=== PATIENT | female | born 1995 | race Caucasian/White ===

== ENCOUNTER 2017-10-13 15:49 | Emergency (ER) | payer MEDICAID, OTHER ==
[~2017-10-13] VITALS: Ht 165.1 cm; Wt 84.8 kg
--- OUTSIDE RECORDS SUMMARY | 2017-10-13 15:56 | XMS REPORT | Clinical Summary ---
Author Author DVINYARD Organization Unknown Address Unknown Phone Unavailable Drug Allergies and Adverse Reactions SNOMED Allergy Type Code Substance Substance RxNorm code Reaction Severity Date Identified Date Resolved Status Problems SNOMED CT Problem Onset Date Ended Date Status Medications RxNorm Code Medication Began Ended Dosage Frequency Route Units Status hydrocodone 10 mg prn as needed for pain 10/25/2009 09/06/2011 Completed Gianvi 06/18/2010 09/06/2011 Completed rocephin 125 mg Im in clinic 07/19/20102009 Completed Z-Pack for throat irritation 09/05/2011 Active Lo Ovral PO 09/06/2011 Active azithromycin 1 gm 11/06/2011 11/06/2011 Completed PNV 11/01/2015 Active Diagnostic Results Lab Results LOINC Code Lab Test Result Abnormal Completed Date HIV RAPID NEG[0] N 09/06/2011 RPR NONREACTIVE[0] N 09/06/2011 URINE HCG NEG[0] N 09/06/2011 CHLAMYDIA POSITIVE[0] Y 09/12/2011 GONORRHEA NEGATIVE[0] N 09/12/2011 URINE HCG NEGATIVE[0] N 01/17/2015 URINE HCG POSITIVE[0] Y 11/01/2015 BB ANTIBODY SCREEN NEGATIVE[0] N BB TYPE B positive[0] N 03/16/2016 GLUCOSE RANDOM 84[0] N 03/16/2016 HEMATOCRIT 36 Y 03/16/2016 HEMOGLOBIN 12.0[12] N 03/16/2016 Hgb A1c 5.4 N 03/16/2016 PNUA01 GLUCOSE NEGATIVE[0] N 2015 PNUA02 KETONES NEGATIVE[0] N 2015 PNUA03 - SP. GRAVITY 1.020[0] N 03/16 PNUA04 - PROTEIN NEGATIVE[0] N 2015 URINE CULTURE KU SEE COMMENTS[0] Y CHLAMYDIA NEGATIVE[0] N 03/19/2016 GONORRHEA NEGATIVE[0] N 03/19/2016 HIV-KDHE4 4th GENERATION NON-REACTIVE[0] N 03/19/2016 RPR NON-REACTIVE[0] N 03/20/2016 PAP NEGATIVE[0] N 03/20/2016 HEPATITIS B (HBs Ag SCREEN) NON-REACTIVE[0] N 03/21/2016 HEMATOCRIT 33 Y 04/05/2016 HEMOGLOBIN 11.0[11] Y 04/05/2016 [id number] FASTING 107 Y 04/05/2016 [id number] 1 HOUR GLUCOSE 223 Y 2015 [id number] 2 HOUR GLUCOSE 147 N 2015 PNUA01 GLUCOSE NEGATIVE[0] N 2015 PNUA02 KETONES NEGATIVE[0] N 2015 PNUA03 - SP. GRAVITY 1.020[0] N 04/05 PNUA04 - PROTEIN TRACE[0] Y 2015 RUBELLA NEGATIVE[0] Y 04/06/2016 GLUCOSE RANDOM 153[0] Y 04/12/2016 PNUA01 GLUCOSE NEGATIVE[0] N 2015 PNUA02 KETONES NEGATIVE[0] N 2015 PNUA03 - SP. GRAVITY 1.020[0] N 04/12 PNUA04 - PROTEIN NEGATIVE[0] N 2015 Encounters Date Location Type 07/19/2010 [facility][STD] CLINIC 09/06/2011 [facility][IMMUNIZATION] CLINIC 11/06/2011 [facility][STD - MS] CLINIC 01/17/2015 [facility][FP DROP INS] CLINIC 11/01/2015 [facility][FP DROP INS] CLINIC 03/02/2016 [facility][PN REGISTRATION] CLINIC 03/16/2016 [facility][NPIS OLATHE] CLINIC 04/05/2016 [facility][PN COUNCILOR] CLINIC 04/06/2016 [facility][PN DIABETIC EDUC] CLINIC 04/12/2016 [facility][PN GDM] CLINIC Vital Signs Date Height(cm) Weight(kg) Head Circ(cm) BP-Systolic BP-Diastolic Temperature(C) Respiration Heart Beat Oxygen(%) 09/06/2011 165.1 68.04 108 66 01/17/2015 80.29 11/01/2015 165.1 84.37 03/16/2016 161.29 86.6 100 60 04/05/2016 161.29 [id number] 82 48 04/12/2016 161.29 90.5 104 58
--- OUTSIDE RECORDS SUMMARY | 2017-10-13 15:56 | XMS REPORT | Clinical Summary ---
Author Author JOB Organization Unknown Address Unknown Phone Unavailable Drug [...] Code Lab Test Result Abnormal Completed Date RUBELLA [0] N HIV RAPID NEG[0] N 09/06/2011 RPR NONREACTIVE[0] [...] 33 Y 04/05/2016 HEMOGLOBIN 11.0[11] Y 04/05/2016 [id number] FASTING 107 Y 04/05/2016 [id number] 1 HOUR GLUCOSE 223 Y 2015 [id number] 2 HOUR GLUCOSE 147 N 2015 PNUA01 GLUCOSE NEGATIVE[0] N 2015 PNUA02 KETONES NEGATIVE[0] N 2015 PNUA03 - SP. GRAVITY 1.020[0] N 04/05 PNUA04 - PROTEIN TRACE[0] Y 2015 Encounters Date Location Type 07/19/2010 [facility] 09/[facility]/2011 [facility][IMMUNIZATION] CLINIC 11/06/2011 [facility][STD - MS] CLINIC 01/17/[facility] 11/01/[facility] 03/02/[facility] 03/16/[facility] 04/05/[facility] 04/06/[facility] Vital Signs Date Height(cm) Weight(kg) Head Circ(cm) BP-Systolic BP-Diastolic Temperature(C) Respiration Heart Beat Oxygen(%) 09/06/2011 165.1 68.04 108 66 01/17/2015 80.29 11/01/2015 165.1 84.37 03/16/2016 161.29 86.6 100 60 04/05/2016 161.29 [id number] 82 48
--- OUTSIDE RECORDS SUMMARY | 2017-10-13 15:57 | XMS REPORT | Clinical Summary ---
[...] 33 Y 04/05/2016 HEMOGLOBIN 11.0[11] Y 04/05/2016 [id number] FASTING 107 Y 04/05/2016 [id number] 1 HOUR GLUCOSE 223 Y 2015 [id number] 2 HOUR GLUCOSE 147 N 2015 PNUA01 GLUCOSE NEGATIVE[0] N 2015 PNUA02 KETONES NEGATIVE[0] N 2015 PNUA03 - SP. GRAVITY 1.020[0] N 04/05 PNUA04 - PROTEIN TRACE[0] Y 2015 RUBELLA NEGATIVE[0] Y 04/06/2016 GLUCOSE RANDOM 153[0] Y 04/12/2016 PNUA01 GLUCOSE NEGATIVE[0] N 2015 PNUA02 KETONES NEGATIVE[0] N 2015 PNUA03 - SP. GRAVITY 1.020[0] N 04/12 PNUA04 - PROTEIN NEGATIVE[0] N 2015 PNUA01 GLUCOSE NEGATIVE[0] N 2015 PNUA02 KETONES NEGATIVE[0] N 2015 PNUA03 - SP. GRAVITY 1.020[0] N 04/26 PNUA04 - PROTEIN NEGATIVE[0] N 2015 Encounters Date Location Type 07/19/2010 [facility][STD] CLINIC 09/06/2011 [facility][IMMUNIZATION] CLINIC 11/06/2011 [facility][STD - MS] CLINIC 01/17/2015 [facility][FP DROP INS] CLINIC 11/01/2015 [facility][FP DROP INS] CLINIC 03/02/2016 [facility][PN REGISTRATION] CLINIC 03/16/2016 [facility][NPIS [place]] CLINIC 04/05/2016 [facility][PN FUR SCRAPER] CLINIC 04/06/2016 [facility][PN DIABETIC EDUC] CLINIC 04/12/2016 [facility][PN GDM] CLINIC 04/19/2016 [facility][PN GDM] CLINIC 04/26/2016 [facility][PN GDM] CLINIC Vital Signs Date Height(cm) Weight(kg) Head Circ(cm) BP-Systolic BP-Diastolic Temperature(C) Respiration Heart Beat Oxygen(%) 09/06/2011 165.1 68.04 108 66 01/17/2015 80.29 11/01/2015 165.1 84.37 03/16/2016 161.29 86.6 100 60 04/05/2016 161.29 [id number] 82 48 04/12/2016 161.29 90.5 104 58 04/26/2016 161.29 90.6 104 52
--- OUTSIDE RECORDS SUMMARY | 2017-10-13 15:57 | XMS REPORT | Clinical Summary ---
[...] 33 Y 04/05/2016 HEMOGLOBIN 11.0[11] Y 04/05/2016 [id number] FASTING 107 Y 04/05/2016 [id number] 1 HOUR GLUCOSE 223 Y 2015 [id number] 2 HOUR GLUCOSE 147 N 2015 PNUA01 [...] 04/26 PNUA04 - PROTEIN NEGATIVE[0] N 2015 PNUA01 GLUCOSE NEGATIVE[0] N 2015 PNUA02 KETONES NEGATIVE[0] N 2015 PNUA03 - SP. GRAVITY 1.020[0] N 05/03 PNUA04 - PROTEIN NEGATIVE[0] N 2015 PNUA01 GLUCOSE NEGATIVE[0] N 2015 PNUA02 KETONES NEGATIVE[0] N 2015 PNUA03 - SP. GRAVITY 1.025[0] N 05/10 PNUA04 - PROTEIN NEGATIVE[0] N 2015 Encounters Date Location Type 07/19/2010 [facility][STD] CLINIC 09/06/2011 [facility][IMMUNIZATION] CLINIC 11/06/2011 [facility][STD - MS] CLINIC 01/17/[facility]/05[facility] DIRECTOR OF ACQUISITION MARKETING[facility]/06[facility] GDM[facility] 04/19/2016 [facility] 04/26/[facility] 05/03[facility] 05[facility]10[facility] Vital Signs Date Height(cm) Weight(kg) Head Circ(cm) BP-Systolic BP-Diastolic Temperature(C) Respiration Heart Beat Oxygen(%) 09/06/2011 165.1 68.04 108 66 01/17/2015 80.29 11/01/2015 165.1 84.37 03/16/2016 161.29 86.6 100 60 04/05/2016 161.29 [id number] 82 48 04/12/2016 161.29 90.5 104 58 04/26/2016 161.29 90.6 104 52 05/03/2016 161.29 90.1 100 56 05/10/2016 161.29 91.4 106 58
--- OUTSIDE RECORDS SUMMARY | 2017-10-13 15:57 | XMS REPORT | Clinical Summary ---
[...] Active azithromycin 1 gm 11/06/2011 11/06/2011 Completed Diagnostic Results Lab Results LOINC Code Lab Test Result Abnormal Completed Date HIV RAPID NEG[0] N 09/06/2011 RPR NONREACTIVE[0] N 09/06/2011 URINE HCG NEG[0] N 09/06/2011 CHLAMYDIA POSITIVE[0] Y 09/12/2011 GONORRHEA NEGATIVE[0] N 09/12/2011 URINE HCG NEGATIVE[0] N 01/17/2015 URINE HCG POSITIVE[0] Y 11/01/2015 Encounters Date Location Type 07/19/2010 [facility][STD] CLINIC 09/06/2011 [facility][IMMUNIZATION] CLINIC 11/06/2011 [facility][STD - MS] CLINIC 01/17/2015 [facility][FP DROP INS] CLINIC 11/01/2015 [facility][FP DROP INS] CLINIC Vital Signs Date Height(cm) Weight(kg) Head Circ(cm) BP-Systolic BP-Diastolic Temperature(C) Respiration Heart Beat Oxygen(%) 09/06/2011 165.1 68.04 108 66 01/17/2015 80.29 11/01/2015 165.1 84.37
[2017-10-13 16:15] LABS: BILIRUBIN,URINE NEGATIVE (NEGATIVE); KETONES,URINE NEGATIVE (NEGATIVE); LEUKOCYTE ESTERASE ,URINE 1+ (NEGATIVE); NITRITE,URINE NEGATIVE (NEGATIVE); PH,URINE 8 (5-9); PROTEIN,URINE 2+ (NEGATIVE); UROBILINOGEN,URINE NORMAL (NORMAL)
[2017-10-13 16:24] LABS: SQUAMOUS EPITHELIAL CELL,UR 25-50 /HPF; WBC,URINE 0-2 /HPF
--- NOTE | 2017-10-13 16:34 | ED Abdominal Pain ---
General Chief Complaint: Abdominal/GI Problems Stated Complaint: VOMITING/R SIDE PAIN Nursing Triage Note: PT STATES SHE WAS ADMITTED AT [facility] FOR INTENTIONAL TYLENOL OD ON LAST SATURDAY DUE TO BREAK UP WITH . CC TODAY OF RT SIDE ABD PAIN THAT RADIATES TO THE BACK FOR A COUPLE WEEKS, PRIOR TO TYLENOL. Sepsis Screen: No Definite Risk Source of Information: Patient Exam Limitations: No Limitations History of Present Illness Time Seen By Provider: 16:34 Initial Comments 21-year-old female patient presents to the emergency department with complaints of right upper abdominal pain radiating around the right side to the back for approximately 2 weeks. Worse with eating. Patient reports being admitted to [facility] last Saturday for intentional Tylenol overdose due to recent breakup with her . Reports onset of right upper quadrant pain was prior to Tylenol ingestion. Patient denies any current suicidal or homicidal ideation. Denies taking anything [id number] for pain patient states she is afraid to take anything due to the recent Tylenol ingestion. Denies fever or chills. Timing/Duration: Other (two-week onset) Severity/Quality: Aching, Sharp Location: RUQ Radiation: Back (right mid back), Flank Activities at Onset: None Modifying Factors: Worsens With Eating, Worsens With Palpation Allergies and Home Medications Allergies Coded Allergies: No Known Drug Allergies (Unverified , 10/13/17) Home Medications Ondansetron 8 Mg Tab.rapdis, 8 MG PO Q6H PRN for NAUSEA/VOMITING-1ST LINE, #10 Ref 0 Prescribed by: KAY CEJA on 10/13/17 5206 Review of Systems Constitutional: No chills, No fever, No malaise EENTM: No Symptoms Reported Respiratory: Denies Cough, Denies Orthopnea, Denies Shortness of Air, Denies SOA With Exertion Cardiovascular: Denies Chest Pain, Denies Lightheadedness, Denies Palpitations , Denies Syncope Gastrointestinal: See HPI, Denies Abdomen Distended, Abdominal Pain, Denies Blood Streaked Stools, Denies Constipated, Denies Diarrhea, Nausea, Poor Appetite, Denies Poor Fluid Intake, Denies Rectal Bleeding, Denies Vomiting Genitourinary: Denies Burning, Denies Frequency, Denies Flank Pain, Denies Hematuria, Denies Pain Musculoskeletal: see HPI, back pain Skin: no symptoms reported Psychiatric/Neurological: No Symptoms Reported All Other Systems Reviewed Negative Unless Noted: Yes (Negative excepted noted.) Past Fgilrlo-Idcljo-Bczfxk Hx Patient Social History Alcohol Use: Rarely Uses Alcohol Beverage of Choice: Beer Recreational Drug Use: No Smoking Status: Never a Smoker Recent Foreign Travel: No Contact w/Someone Who Travel: No Recent Infectious Disease Expo: No Recent Hopitalizations: Yes (09/2017 [facility] ) Physical Abuse: No Sexual Abuse: No Mistreated: No Fear: No Seasonal Allergies Seasonal Allergies: No Surgeries History of Surgeries: Yes Surgeries: Section Respiratory History of Respiratory Disorde: No Cardiovascular History of Cardiac Disorders: No Neurological History of Neurological Disord: No Reproductive System : No Last Menstrual Period: Oct 06, 2017 Genitourinary History of Genitourinary Disor: No Gastrointestinal History of Gastrointestinal Di: No Musculoskeletal History of Musculoskeletal Dis: No Endocrine History of Endocrine Disorders: No HEENT History of HEENT Disorders: No Cancer History of Cancer: No Psychosocial History of Psychiatric Problem: Yes Behavioral Health Disorders: Anxiety, Suicide Attempts, Depression Suicide Risk Score: 0 Integumentary History of Skin or Integumenta: No Reviewed Nursing Assessment Reviewed/Agree w Nursing PMH: Yes Family Medical History Significant Family History: No Pertinent Family Hx Physical Exam Vital Signs VS - Last 72 Hours, by Label 10/13/17 10/13/17 16:03 18:52 Temp 98.0 98.0 Pulse 89 76 Resp 20 16 B/P (MAP) 113/73 (86) Pulse Ox 99 99 O2 Delivery Room Air Capillary Refill : Less Than 3 Seconds General Appearance: WD/WN, no apparent distress HEENT: PERRL/EOMI, pharynx normal Neck: supple, normal inspection Respiratory: lungs clear, normal breath sounds, no respiratory distress, no accessory muscle use Cardiovascular: normal peripheral pulses, regular rate, rhythm, no edema, no murmur Gastrointestinal: normal bowel sounds, soft, no organomegaly, no pulsatile mass , No distended, guarding (right upper quadrant guarding), No rebound, tenderness (right upper quadrant tenderness with a positive Mcmillan sign) Extremities: no pedal edema, normal capillary refill Back: normal inspection, no CVA tenderness Neurologic/Psychiatric: alert, normal mood/affect, oriented x 3 Skin: normal color, warm/dry Progress/Results/Core Measures Results/Orders Lab Results Laboratory Tests Test 10/13/17 16:00 10/13/17 16:20 Range/Units Urine Color YELLOW Urine Clarity SLIGHTLY CLOUDY Urine pH 8 5-9 Urine Specific [place] 1.010 L 1.016-1.022 Urine Protein 2+ H NEGATIVE Urine Glucose (UA) NEGATIVE NEGATIVE Urine Ketones NEGATIVE NEGATIVE Urine Nitrite NEGATIVE NEGATIVE Urine Bilirubin NEGATIVE NEGATIVE Urine Urobilinogen NORMAL NORMAL MG/DL Urine Leukocyte Esterase 1+ H NEGATIVE Urine RBC (Auto) NEGATIVE NEGATIVE Urine RBC NONE /HPF Urine WBC 0-2 /HPF Urine Squamous Epithelial Cells 25-50 H /HPF Urine Crystals NONE /LPF Urine Bacteria FEW H /HPF Urine Casts NONE /LPF Urine Mucus NEGATIVE /LPF Urine Culture Indicated NO White Blood Count 10.6 4.3-11.0 10^3/uL Red Blood Count 4.34 L 4.35-5.85 10^6/uL Hemoglobin 13.2 11.5-16.0 G/DL Hematocrit 40 35-52 % Mean Corpuscular Volume 91 80-99 FL Mean Corpuscular Hemoglobin 30 25-34 PG Mean Corpuscular Hemoglobin Concent 33 32-36 G/DL Red Cell Distribution Width 13.0 10.0-14.5 % Platelet Count 434 H 130-400 10^3/uL Mean Platelet Volume 9.9 7.4-10.4 FL Neutrophils (%) (Auto) 62 42-75 % Lymphocytes (%) (Auto) 30 12-44 % Monocytes (%) (Auto) 6 0-12 % Eosinophils (%) (Auto) 2 0-10 % Basophils (%) (Auto) 1 0-10 % Neutrophils # (Auto) 6.6 1.8-7.8 X 10^3 Lymphocytes # (Auto) 3.2 1.0-4.0 X 10^3 Monocytes # (Auto) 0.7 0.0-1.0 X 10^3 Eosinophils # (Auto) 0.2 0.0-0.3 10^3/uL Basophils # (Auto) 0.1 0.0-0.1 10^3/uL Sodium Level 140 135-145 MMOL/L Potassium Level 4.0 3.6-5.0 MMOL/L Chloride Level 101 98-107 MMOL/L Carbon Dioxide Level 28 21-32 MMOL/L Anion Gap 11 5-14 MMOL/L Blood Urea Nitrogen 12 7-18 MG/DL Creatinine 0.70 0.60-1.30 MG/DL Estimat Glomerular Filtration Rate > 60 BUN/Creatinine Ratio 17 Glucose Level 92 70-105 MG/DL Calcium Level 10.1 8.5-10.1 MG/DL Total Bilirubin 0.3 0.1-1.0 MG/DL Aspartate Amino Transf (AST/SGOT) 15 5-34 U/L Alanine Aminotransferase (ALT/SGPT) 17 0-55 U/L Alkaline Phosphatase 62 40-136 U/L C-Reactive Protein High Sensitivity 1.44 H 0.00-0.50 MG/DL Total Protein 8.3 H 6.4-8.2 GM/DL Albumin 4.6 H 3.2-4.5 GM/DL Lipase 55 8-78 U/L My Orders Orders - KAY CEJA Urine Bedside (10/13/17 16:10) Ua Culture If Indicated (10/13/17 16:10) Cbc With Automated Diff (10/13/17 16:42) Comprehensive Metabolic Panel (10/13/17 16:42) Hs C Reactive Protein (10/13/17 16:42) Lipase (10/13/17 16:42) Saline Lock/Iv-Start (10/13/17 16:42) Ct Abdomen/Pelvis W (10/13/17 16:42) Ondansetron Injection (Zofran Injectio (10/13/17 16:45) Ketorolac Injection (Toradol Injection) (10/13/17 16:42) Ns Iv 1000 Ml (Sodium Chloride 0.9%) (10/13/17 16:42) Iohexol Injection (Omnipaque 350 Mg/Ml 1 (10/13/17 17:00) Ns (Ivpb) (Sodium Chloride 0.9% Ivpb Bag (10/13/17 17:00) Pharmacy Communication (Pharmacy Communi (10/13/17 16:46) Rx-Ondansetron Po (Rx-Zofran Po) (10/13/17 18:54) Medications Given in ED Current Medications Medications Dose Ordered Sig/Carmella Route Start Time Stop Time Status Last Admin Dose Admin Iohexol 100 ml ONCE ONCE IV 10/13/17 17:00 12 17:01 DC 10/13/17 17:24 100 ML Ondansetron HCl 4 mg ONCE ONCE IVP 10/13/17 16:45 10/13/17 16:46 DC 10/13/17 17:31 4 MG Sodium Chloride 100 ml ONCE ONCE IV 10/13/17 17:00 10/13/17 17:01 DC 10/13/17 17:24 80 ML Sodium Chloride 1,000 ml @ 0 mls/hr Q0M ONCE IV 10/13/17 16:42 10/13/17 16:45 DC 10/13/17 17:31 0 MLS/HR Vital Signs/I&O Vital Sign - Last 12Hours 10/13/17 10/13/17 16:03 18:52 Temp 98.0 98.0 Pulse 89 76 Resp 20 16 B/P (MAP) 113/73 (86) Pulse Ox 99 99 O2 Delivery Room Air Intake and Output 10/14/17 00:00 Intake Total 1000 ml Balance 1000 ml Blood Pressure Mean: 86 Point of Care Testing Urine -Bedside: Negative Diagnostic Imaging Diagonstic Imaging: CT Plain Films/CT/US/NM/MRI: abdomen, pelvis Comments FINDINGS: Structure believed to be the appendix visualized and normal. There is no hydronephrosis. No opaque ureteral stone. Urinary bladder is unremarkable. The uterus and adnexa appeared unremarkable. There is no small or large bowel obstruction. The liver, gallbladder, spleen, adrenals, and pancreas are unremarkable. The aortoiliac vessels are patent and nonaneurysmal. Thinning and bulging of the periumbilical ventral abdominal wall is present without viscus herniation or regional inflammation. There is no ascites, abscess, hematoma, or fluid collection. No pneumatosis or free gas. The osseous structures and the lung bases were nonacute. IMPRESSION: No inflammatory process, obstructive features, or acute appearing abdominal or pelvic abnormalities. Dictated by: Dictated on workstation # [id number] Reviewed: Reviewed by Me (radiology report reviewed by me) Departure Communication (Admissions) Progress Notes Patient seen and evaluated. CT scan of the abdomen and pelvis obtained as well as baseline labs. Patient reports feeling better with medications given in the emergency department. All laboratory findings and diagnostic study findings discussed with the patient. Patient shows decreased right upper quadrant tenderness on exam. Patient is alert and oriented 3, no acute distress. Plan for discharge to home with follow-up as an outpatient with her primary care provider for possible need of outpatient hepatobiliary scan. All return precautions were discussed with the patient as described in the discharge instructions of this report. Patient verbalizes understanding and agrees with the treatment plan. Impression Impression: Primary Impression: RUQ abdominal pain Additional Impression: Nausea Disposition: 01 HOME, SELF-CARE Condition: Improved Departure-Patient Inst. Decision time for Depature: 18:53 Referrals: NO,LOCAL PHYSICIAN (PCP/Family) Primary Care Physician Patient Instructions: Acute Abdomen (Belly Pain), Adult (DC) Add. Discharge Instructions: All discharge instructions reviewed with patient and/or family. Voiced understanding. Medications as instructed. Ibuprofen 800 mg by mouth every 8 hours as a for pain or Aleve 1 twice daily as needed for pain. Drink plenty of fluids. Alternate water and Powerade/Gatorade. Follow-up with your primary care provider of choice as an outpatient for a recheck and possible need for outpatient Hepatobiliary scan. Return to the emergency department immediately for worsened pain, vomiting, fever, decreased urination, abdominal swelling, or any other concerns. Scripts Ondansetron (Ondansetron Odt) 8 Mg Tab.rapdis 8 MG PO Q6H Y for NAUSEA/VOMITING-1ST LINE, #10 TAB 0 Refills Prov: KAY CEJA 10/13/17 Work/School Note: [employer]ing KAY CEJA Oct 13, 2017 16:34
[2017-10-13] MEDS ORDERED: KETOROLAC 30 MG/ML VIAL IVP STA (16:42)
[2017-10-13] MEDS ORDERED: NS IV 1000 ML 1,000 ML IV ONE (16:42)
[2017-10-13] MEDS ORDERED: ONDANSETRON 4 MG/2 ML (SDV) Z0FRAN IVP ONE (16:45)
[2017-10-13 16:54] LABS: BASOPHILS # (AUTO) 0.1 10^3/uL (0.0-0.1); BASOPHILS % (AUTO) 1 % (0-10); EOSINOPHILS # (AUTO) 0.2 10^3/uL (0.0-0.3); EOSINOPHILS % (AUTO) 2 % (0-10); LYMPHOCYTES # (AUTO) 3.2 X 10^3 (1.0-4.0); LYMPHOCYTES % (AUTO) 30 % (12-44); MEAN CORPUSCULAR HEMOGLOBIN 30 PG (25-34); MEAN CORPUSCULAR HGB CONC 33 G/DL (32-36); MEAN CORPUSCULAR VOLUME 91 FL (80-99); MEAN PLATELET VOLUME 9.9 FL (7.4-10.4); MONOCYTES # (AUTO) 0.7 X 10^3 (0.0-1.0); MONOCYTES % (AUTO) 6 % (0-12); NEUTROPHILS # (AUTO) 6.6 X 10^3 (1.8-7.8); NEUTROPHILS % (AUTO) 62 % (42-75); PLATELET COUNT 434 10^3/uL (130-400); RED BLOOD COUNT 4.34 10^6/uL (4.35-5.85); WHITE BLOOD COUNT 10.6 10^3/uL (4.3-11.0)
[2017-10-13] MEDS ORDERED: IOHEXOL 350 MG/ML 100 ML (OMNIPAQUE 350) VIAL IV ONE (17:00)
[2017-10-13] MEDS ORDERED: NS 100 ML (IVPB) BAG IV ONE (17:00)
[2017-10-13 17:04] LABS: ALANINE AMINOTRANSFERASE 17 U/L (0-55); ALBUMIN 4.6 GM/DL (3.2-4.5); ANION GAP 11 MMOL/L (5-14); ASPARTATE AMINO TRANSFERASE 15 U/L (5-34); BILIRUBIN,TOTAL 0.3 MG/DL (0.1-1.0); BLOOD UREA NITROGEN 12 MG/DL (7-18); BUN/CREATININE RATIO 17; CALCIUM 10.1 MG/DL (8.5-10.1); CARBON DIOXIDE 28 MMOL/L (21-32); CHLORIDE 101 MMOL/L (98-107); GFR ESTIMATED > 60; GLUCOSE 92 MG/DL (70-105); LIPASE 55 U/L (8-78); SODIUM 140 MMOL/L (135-145); TOTAL PROTEIN 8.3 GM/DL (6.4-8.2); hs C REACTIVE PROTEIN 1.44 MG/DL (0.00-0.50)
--- NOTE | 2017-10-13 17:36 | Diagnostic Imaging Report ---
PROCEDURE: CT abdomen and pelvis with contrast. TECHNIQUE: Multiple contiguous axial images were obtained through the abdomen and pelvis after administration of intravenous contrast. INDICATION: Right lateral pain radiating into the back, worsening in severity accompanied by nausea. FINDINGS: Structure believed to be the appendix visualized and normal. There is no hydronephrosis. No opaque ureteral stone. Urinary bladder is unremarkable. The uterus and adnexa appeared unremarkable. There is no small or large bowel obstruction. The liver, gallbladder, spleen, adrenals, and pancreas are unremarkable. The aortoiliac vessels are patent and nonaneurysmal. Thinning and bulging of the periumbilical ventral abdominal wall is present without viscus herniation or regional inflammation. There is no ascites, abscess, hematoma, or fluid collection. No pneumatosis or free gas. The osseous structures and the lung bases were nonacute. IMPRESSION: No inflammatory process, obstructive features, or acute appearing abdominal or pelvic abnormalities. Dictated by: Dictated on workstation # [id number]
[2017-10-13 18:52] VITALS: BP 118/79
[2017-10-13] MEDS ORDERED: ONDA8TAB13 PO (18:53)
[2017-10-13] MEDS ORDERED: RX-ONDANSETRON 4 MG ODT (ZOFRAN) PPK #4 PO STA (18:54)
== END 2017-10-13 18:55 | disposition home or self-care (01) ==
LOC: EDUNIT# 15:49 → ER 15:52
DX: R10.11 Right upper quadrant pain (principal); R11.0 Nausea; F41.9 Anxiety disorder, unspecified; F32.9 Major depressive disorder, single episode, unspecified; Z91.5 Personal history of self-harm; Z87.59 Personal history of other complications of pregnancy, childbirth and the puerperium
CPT/HCPCS: 36415; 74177; 80053; 81000; 83690; 84703; 85025; 86141